=== PATIENT | male | born 1975 | race Two or more races ===

== ENCOUNTER 2024-03-31 12:11 | Emergency (ER) | payer SELFPAY ==
[~2024-03-31] VITALS: Ht 172.7 cm; Wt 79.6 kg
[2024-03-31] MEDS ORDERED: KETOROLAC TROMETHAMINE 30 MG/ML VIAL IV ONE (12:45)
[2024-03-31] MEDS ORDERED: AMP/SULBACTAM SOD 3 GM in SODIUM CHLORIDE 0.9% 100 ML IV ONE (12:45)
[2024-03-31 12:48] LABS: BASOPHILS 0.7 % (0-2); EOSINOPHILS 3.2 % (0-6); HEMATOCRIT 48.2 % (35.0-50.0); HEMOGLOBIN 16.4 g/dL (12.0-18.0); LYMPHOCYTES 15.4 % (24-44); MCH 29.8 (27-36); MCV 87.4 fl (81-99); MONOCYTES 8.8 % (0-12); NEUTROPHILS 71.9 % (39-80); PLATELET COUNT 327 K/uL (140-440); RBC 5.51 M/ul (4.3-5.7); RDW 13.2 (10.5-15.0)
[2024-03-31 13:00] LABS: ALBUMIN 3.6 g/dL (3.4-5.0); ALBUMIN/GLOBULIN RATIO 0.92 (1.1-2.4); ANION GAP 14.4 (7-21); BILIRUBIN, TOTAL 0.3 ng/dL (0.2-1.0); BUN/CREATININE RATIO 18.18 (6.0-28.6); CALCIUM 9.1 mg/dL (8.5-10.1); CREATININE, SERUM 0.99 mg/dL (0.70-1.30); POTASSIUM 4.4 mmol/L (3.5-5.1); PROTEIN, TOTAL 7.5 g/dL (6.4-8.2)
[2024-03-31] MEDS ORDERED: HYDROCODON-ACE1 EA11 PO (14:22)
[2024-03-31] MEDS ORDERED: AMOXICILLIN500 MG PO (14:22)
[2024-03-31 14:47] VITALS: BP 158/69
--- NOTE | 2024-03-31 23:34 | EKG ---
[facility] [address] [place] [place] [address] Signed Sinus bradycardia Nonspecific ST and T wave abnormality Abnormal ECG No previous ECGs available Confirmed by Faye Stubbs MD ([id number]) on 03/31/2024 11:34:31 PM Electronically Signed By: FAYE STUBBS DO 03/31/24 [id number] PATIENT NAME: JAYESH GARCIA Electrocardiogram DATE OF : 71 PHYSICIAN: FAYE STUBBS DO REPORT #: [id number] REPORT IS CONFIDENTIAL AND NOT TO BE RELEASED WITHOUT AUTHORIZATION
== END 2024-03-31 14:49 | disposition home or self-care (01) ==
LOC: ED 12:11
PROVIDERS: Emergency Medicine
DX: K08.89 Other specified disorders of teeth and supporting structures (principal); R07.9 Chest pain, unspecified; Z95.5 Presence of coronary angioplasty implant and graft
CPT/HCPCS: 36415; 80053; 84484; 85025; 93005; 93010; 96374; 96375; 99285-25; J0295; J1885